=== PATIENT | female | born 1995 | race Caucasian/White ===

== ENCOUNTER 2020-01-13 11:18 | Emergency (ER) | payer MEDICAID ==
--- NOTE | 2020-01-13 12:04 | EDM.PDOC ---
ED HPI GENERAL MEDICAL PROBLEM - General Chief Complaint: Respiratory Problem Stated Complaint: EXPOSED TO FLU HAS COUGH AND KIDNEY PAIN Time Seen by Provider: 01/13/20 11:29 Source of Information: Reports: Patient, Family History Limitations: Reports: No Limitations - History of Present Illness INITIAL COMMENTS - FREE TEXT/NARRATIVE: The patient presents with a fever, cough, congestion, runny nose, and kidney pain. 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 She also has a sore throat. She has no chest pain or shortness of breath. She has a little nausea but no vomiting and she has no abdominal pain. She does not have dysuria or hematuria. Onset: Gradual Duration: Day(s): Location: Reports: Back, Other (throat) Quality: Reports: Sharp Severity: Moderate Improves with: Reports: None Worsens with: Reports: None Associated Symptoms: Reports: Cough, Fever/Chills. Denies: Chest Pain, Headaches, Nausea/Vomiting, Shortness of Breath - Related Data Allergies Allergy/AdvReac Type Severity Reaction Status Date / Time butorphanol [From Stadol] Allergy Cannot Verified 01/13/20 11:29 Remember ketorolac [From Toradol] Allergy Cannot Verified 01/13/20 11:29 Remember Penicillins Allergy Cannot Verified 01/13/20 11:29 Remember trazodone Allergy Cannot Verified 01/13/20 11:29 Remember contrast dye. Allergy Cannot Uncoded 01/13/20 11:29 Remember Home Meds: Home Meds Codeine/Promethazine [Phenergan with Codeine] 5 - 10 ml PO Q6HR PRN #300 ml 06/26 [Rx] Past Medical History Cardiovascular History: Reports: Other (See Below) Other Cardiovascular History: tachycardia Respiratory History: Reports: Asthma - Past Surgical History HEENT Surgical History: Reports: Adenoidectomy, Myringotomy w Tube(s), Tonsillectomy GI Surgical History: Reports: Cholecystectomy Social & Family History - Tobacco Use Smoking Status *Q: Current Every Day Smoker Years of Tobacco use: 12 Packs/Tins Daily: 1 - Recreational Drug Use Recreational Drug Use: No ED ROS GENERAL - Review of Systems Review Of Systems: See Below Constitutional: Reports: No Symptoms HEENT: Reports: Throat Pain Respiratory: Reports: Cough. Denies: Shortness of Breath Cardiovascular: Reports: No Symptoms Endocrine: Reports: No Symptoms GI/Abdominal: Reports: Nausea. Denies: Abdominal Pain, Vomiting : Reports: No Symptoms Musculoskeletal: Reports: Back Pain ED EXAM, GENERAL - Physical Exam Exam: See Below Exam Limited By: No Limitations General Appearance: Alert, No Apparent Distress Ears: Normal External Exam Nose: Normal Inspection Throat/Mouth: Other (pharyngeal erythema and some mild edema) Head: Atraumatic, Normocephalic Neck: Normal Inspection, Supple, Non-Tender Respiratory/Chest: No Respiratory Distress, Lungs Clear, Normal Breath Sounds Cardiovascular: Regular Rate, Rhythm, No Edema, No Murmur GI/Abdominal: Soft, Non-Tender, No Organomegaly, No Mass Back Exam: CVA Tenderness (L), CVA Tenderness (R) Extremities: Normal Inspection Neurological: Alert, Oriented, No Motor/Sensory Deficits Course - Vital Signs Last Recorded V/S: Last Vital Signs Temp 97.1 F 01/13/20 11:26 Pulse 112 H 01/13/20 11:26 Resp 16 01/13/20 11:26 BP 130/102 H 01/13/20 11:26 Pulse Ox 98 01/13/20 11:26 - Orders/Labs/Meds Orders: Active Orders 24 hr Category Date Time Status CBC WITH AUTO DIFF [HEME] Stat Lab 01/13/20 12:20 Results CULTURE STREP A CONFIRMATION [RM] Stat Lab 01/13/20 11:29 Results STREP SCRN A RAPID W CULT CONF [RM] Stat Lab 01/13/20 11:29 Results Labs: Laboratory Tests 01/13/20 01/13/20 Range/Units 12:20 12:20 WBC 3.85 L (3.98-10.04) K/mm3 RBC 4.79 (3.98-5.22) M/mm3 Hgb 13.4 (11.2-15.7) gm/dl Hct 41.5 (34.1-44.9) % MCV 86.6 (79.4-94.8) fl MCH 28.0 (25.6-32.2) pg MCHC 32.3 (32.2-35.5) g/dl RDW Std Deviation 45.4 (36.4-46.3) fL Plt Count 280 (182-369) K/mm3 MPV 10.0 (9.4-12.3) fl Neut % (Auto) 64.0 (34.0-71.1) % Lymph % (Auto) 17.9 L (19.3-51.7) % Sherman % (Auto) 16.6 H (4.7-12.5) % Eos % (Auto) 1.0 (0.7-5.8) Baso % (Auto) 0.5 (0.1-1.2) % Neut # (Auto) 2.46 (1.56-6.13) K/mm3 Lymph # (Auto) 0.69 L (1.18-3.74) K/mm3 Sherman # (Auto) 0.64 H (0.24-0.36) K/mm3 Eos # (Auto) 0.04 (0.04-0.36) K/mm3 Baso # (Auto) 0.02 (0.01-0.08) K/mm3 Sodium 139 (136-145) mEq/L Potassium 3.9 (3.5-5.1) mEq/L Chloride 106 (98-107) mEq/L Carbon Dioxide 26 (21-32) mEq/L Anion Gap 10.9 (5-15) BUN 7 (7-18) mg/dL Creatinine 0.7 (0.55-1.02) mg/dL Est Cr Clr Drug Dosing 103.40 mL/min Estimated GFR (MDRD) > 60 (>60) mL/min BUN/Creatinine Ratio 10.0 L (14-18) Glucose 85 (74-106) mg/dL Calcium 9.0 (8.5-10.1) mg/dL Total Bilirubin 0.2 (0.2-1.0) mg/dL AST 18 (15-37) U/L ALT 28 (14-59) U/L Alkaline Phosphatase 115 (46-116) U/L Total Protein 7.5 (6.4-8.2) g/dl Albumin 3.7 (3.4-5.0) g/dl Globulin 3.8 gm/dL Albumin/Globulin Ratio 1.0 (1-2) - Re-Assessments/Exams Free Text/Narrative Re-Assessment/Exam: 01/13/20 12:03 I have ordered some labs, influenza and strep. 01/13/20 12:54 The infleunza and strep are negative. Her CBC and CMP look good. She has a viral URI. I will give her something for the cough. Departure - Departure Time of Disposition: 13:00 Disposition: Home, Self-Care 01 Condition: Good Clinical Impression: Viral URI with cough - Discharge Information *PRESCRIPTION DRUG MONITORING PROGRAM REVIEWED*: Not Applicable *COPY OF PRESCRIPTION DRUG MONITORING REPORT IN PATIENT RUTHIE: Not Applicable Prescriptions: Codeine/Promethazine [Phenergan with Codeine] 5 - 10 ml PO Q6HR PRN #300 ml PRN Reason: Cough Referrals: PCP,None [Primary Care Provider] - Forms: ED Department Discharge Additional Instructions: Drink plenty of fluids. Take motrin or tylenol as needed for fever. Use the phenergan with codeine as needed for cough. Please return if you are worse. Sepsis Event Note - Evaluation Sepsis Screening Result: No Definite Risk - Focused Exam Vital Signs: Vital Signs Temp Pulse Resp BP Pulse Ox 01/13/20 11:26 97.1 F 112 H 16 130/102 H 98 Date Exam was Performed: 01/13/20 Time Exam was Performed: 12:54 - My Orders Last 24 Hours: My Active Orders 01/13/20 11:29 CULTURE STREP A CONFIRMATION [RM] Stat STREP SCRN A RAPID W CULT CONF [RM] Stat 01/13/20 12:20 CBC WITH AUTO DIFF [HEME] Stat - Assessment/Plan Last 24 Hours: My Active Orders 01/13/20 11:29 CULTURE STREP A CONFIRMATION [RM] Stat STREP SCRN A RAPID W CULT CONF [RM] Stat 01/13/20 12:20 CBC WITH AUTO DIFF [HEME] Stat
== END 2020-01-13 13:05 | disposition home or self-care (01) ==
LOC: JD.ED 11:18
DX: J06.9 Acute upper respiratory infection, unspecified (principal); J45.909 Unspecified asthma, uncomplicated; F17.210 Nicotine dependence, cigarettes, uncomplicated; Z91.041 Radiographic dye allergy status; Z88.5 Allergy status to narcotic agent; Z88.0 Allergy status to penicillin; Z88.8 Allergy status to other drugs, medicaments and biological substances
CPT/HCPCS: 36415; 80053; 85025; 87081; 87430; 87804; 99283

== ENCOUNTER 2020-01-16 11:41 | Emergency (ER) | payer SELFPAY ==
[2020-01-16] MEDS ORDERED: Codeine/Promethazine 10-6.25 MG/5 ML Syrup 5 ML UD Cup PO ONE (13:42)
[2020-01-16] MEDS ORDERED: Sodium Chloride 0.9% 1,000 ML IV ONE (13:43)
[2020-01-16] MEDS ORDERED: Sodium Chloride 0.9% 10 ML Syringe FLUSH PRN (13:43)
[2020-01-16] MEDS ORDERED: Ondansetron 4 MG/2 ML SDV IVPUSH ONE (13:43)
--- NOTE | 2020-01-16 13:44 | EDM.PDOC ---
ED HPI GENERAL MEDICAL PROBLEM - General Chief Complaint: Respiratory Problem Stated Complaint: UPPER RESPIRATORY INFECTION Time Seen by Provider: 01/16/20 13:28 Source of Information: Reports: Patient, Old Records History Limitations: Reports: No Limitations - History of Present Illness INITIAL COMMENTS - FREE TEXT/NARRATIVE: Patient is a 24-year-old female who presents to the ED for the evaluation of her ongoing illness. Patient notes she was seen in this ER a couple days ago, evaluated and told she had a viral illness and sent home with some cough medication. She states that she was unable to afford the cough medication so did not fill it. She is still coughing, and has had a little bit of nausea/ vomiting/diarrhea over the last 2 days since her last evaluation. She notes she is had a chronic dry cough for the last year but does state is been worse the last 2 weeks. Of note she does vape. She states she is only had 2 or 3 episodes of nausea and vomiting. The diarrhea has been quite loose and has been about 2 or 3 episodes as well. She states she is getting hot and cold flashes but no discernible fever. Patient states she did take 2 home test, and these were both negative. She knows she has had not much for an appetite as well. She is having some generalized chest tenderness due to the cough. Chest Pain Score (Numeric/FACES): 9 - Related Data Allergies Allergy/AdvReac Type Severity Reaction Status Date / Time butorphanol [From Stadol] Allergy Cannot Verified 01/16/20 12:17 Remember ketorolac [From Toradol] Allergy Cannot Verified 01/16/20 12:17 Remember Penicillins Allergy Cannot Verified 01/16/20 12:17 Remember trazodone Allergy Cannot Verified 01/16/20 12:17 Remember contrast dye. Allergy Cannot Uncoded 01/16/20 12:17 Remember Home Meds: Home Meds Codeine/Promethazine [Phenergan with Codeine] 5 - 10 ml PO Q6HR PRN #300 ml 06/26 [Rx] Past Medical History Cardiovascular History: Reports: Other (See Below) Other Cardiovascular History: tachycardia Respiratory History: Reports: Asthma - Past Surgical History HEENT Surgical History: Reports: Adenoidectomy, Myringotomy w Tube(s), Tonsillectomy GI Surgical History: Reports: Cholecystectomy Social & Family History - Tobacco Use Smoking Status *Q: Current Every Day Smoker Years of Tobacco use: 12 Packs/Tins Daily: 1 - Caffeine Use Caffeine Use: Reports: None - Recreational Drug Use Recreational Drug Use: No ED ROS GENERAL - Review of Systems Review Of Systems: See Below Constitutional: Reports: Decreased Appetite. Denies: Fever, Chills HEENT: Reports: Throat Pain Respiratory: Reports: Cough, Sputum. Denies: Shortness of Breath Cardiovascular: Reports: Chest Pain (chest discomfort from coughing) GI/Abdominal: Reports: Diarrhea, Nausea, Vomiting. Denies: Abdominal Pain Neurological: Denies: Dizziness ED EXAM, GENERAL - Physical Exam Exam: See Below Exam Limited By: No Limitations General Appearance: Alert, WD/WN, No Apparent Distress Eye Exam: Bilateral Eye: EOMI, Normal Inspection, PERRL Ears: Normal External Exam, Normal Canal, Hearing Grossly Normal, Normal TMs Nose: Normal Inspection Throat/Mouth: Normal Inspection, Normal Lips, Normal Teeth, Normal Gums, Normal Oropharynx, Normal Voice, No Airway Compromise Head: Atraumatic, Normocephalic Neck: Normal Inspection Respiratory/Chest: No Respiratory Distress, Lungs Clear, Normal Breath Sounds, No Accessory Muscle Use, Chest Non-Tender Cardiovascular: Normal Peripheral Pulses, Regular Rate, Rhythm, No Murmur GI/Abdominal: Normal Bowel Sounds, Soft, Non-Tender, No Distention, No Mass Extremities: Normal Inspection, Normal Capillary Refill Neurological: Alert, Oriented, Normal Cognition, No Motor/Sensory Deficits Psychiatric: Normal Affect, Normal Mood Skin Exam: Warm, Dry, Intact, Normal Color, No Rash Course - Vital Signs Last Recorded V/S: Last Vital Signs Temp 97.0 F 01/16/20 12:12 Pulse 124 H 01/16/20 12:12 Resp 20 01/16/20 12:12 BP 144/109 H 01/16/20 12:12 Pulse Ox 96 01/16/20 12:12 - Orders/Labs/Meds Orders: Active Orders 24 hr Category Date Time Status Peripheral IV Care [RC] . DIRECTED Care 01/16/20 13:43 Ordered RT Post Treatment Assessment [RC] Click to Edit Care 01/16/20 14:17 Ordered RT Pre-Treatment Assessment [RC] Click to Edit Care 01/16/20 14:17 Ordered Sodium Chloride 0.9% [Saline Flush] Med 01/16/20 13:43 Active 10 ml FLUSH ASDIRECTED PRN Peripheral IV Insertion Adult [OM.PC] Stat Oth 01/16/20 13:43 Ordered Medication Orders Sodium Chloride (Saline Flush) 10 ml FLUSH ASDIRECTED PRN PRN Reason: Keep Vein Open Meds: Medications Generic Name Dose Route Start Last Admin Trade Name Freq PRN Reason Stop Dose Admin Sodium Chloride 10 ml 01/16/20 13:43 Saline Flush FLUSH ASDIRECTED PRN Keep Vein Open Discontinued Medications Generic Name Dose Route Start Last Admin Trade Name Freq PRN Reason Stop Dose Admin Acetaminophen 650 mg 01/16/20 14:49 Tylenol PO 01/16/20 14:50 NOW ONE Albuterol 0 gm 01/16/20 14:17 01/16/20 15:08 Proventil Hfa INH 01/16/20 14:18 2 puff ONETIME ONE Administration Sodium Chloride 1,000 mls @ 999 mls/hr 01/16/20 13:43 01/16/20 14:11 Normal Saline IV 01/16/20 14:43 999 mls/hr ONETIME ONE Administration Ketorolac Tromethamine 30 mg 01/16/20 13:43 01/16/20 14:27 Toradol IVPUSH 01/16/20 13:44 Not Given ONETIME ONE Ondansetron HCl 4 mg 01/16/20 13:43 01/16/20 14:11 Zofran IVPUSH 01/16/20 13:44 4 mg ONETIME ONE Administration Promethazine HCl/Codeine 5 ml 01/16/20 13:42 01/16/20 14:11 Phenergan With Codeine PO 01/16/20 13:43 5 ml ONETIME ONE Administration - Re-Assessments/Exams Free Text/Narrative Re-Assessment/Exam: 01/16/20 13:47 Patient presents to the ED for evaluation of her worsening upper respiratory symptoms. On examination, the patient looks fine, but is complaining of nausea and vomiting and not able to keep any food down. She will be given 4 mg IV Zofran, 30 mg IV Toradol, she states she cannot remember what happened with Toradol the last time she took it. This is likely not a true allergy. Should be given some promethazine and codeine for cough syrup today. Unfortunately patient states she is very financially strapped and cannot afford much for medications, so did not fill the cough syrup that was provided to her a few days ago. She did have an extensive laboratory evaluation done that visit, and everything was negative, due to the patient's presentation today I do not believe further laboratory evaluation is warranted. 01/16/20 15:08 Patient's fluids are almost done, she did receive some Tylenol for chest pain, she refused the Toradol. I have provided her with an outpatient albuterol inhaler for the ER, as she cannot afford other medications through pharmacies. We will have her take this as directed and follow-up with her primary care provider of choice in a few days if she is not feeling much better. Departure - Departure Time of Disposition: 15:09 Disposition: Home, Self-Care 01 Condition: Fair Clinical Impression: Viral URI with cough - Discharge Information *PRESCRIPTION DRUG MONITORING PROGRAM REVIEWED*: No *COPY OF PRESCRIPTION DRUG MONITORING REPORT IN PATIENT RUTHIE: No Instructions: Viral Respiratory Infection, [id number] Referrals: PCP,Not In Area [Primary Care Provider] - Forms: ED Department Discharge Additional Instructions: You have been evaluated in the ED today for your cold like symptoms, cough, sore throat. This is likely a viral illness in etiology. Please increase your fluid intake. Get plenty of rest as well. You should feel better in a few days. You were provided with an albuterol inhaler, please take 1 to 2 puffs every 4 hours as needed for further cough/increasing shortness of breath. Recommend that you take some [id number] nasal decongestants, cough/cold remedies to combat this. Medicines like NyQuil, DayQuil, phenylephrine and other sinus decongestants are adequate. If your symptoms are not better in one week's time recommend that you follow up in a clinic or your primary care provider. Our [facility] clinic number is , the [place] clinic is [phone]. Any family practice provider would be able to provide you with the services. Please return to the ED if your symptoms change or worsen. Sepsis Event Note - Evaluation Sepsis Screening Result: No Definite Risk - Focused Exam Vital Signs: Vital Signs Temp Pulse Resp BP Pulse Ox 01/16/20 12:12 97.0 F 124 H 20 144/109 H 96 Date Exam was Performed: 01/16/20 Time Exam was Performed: 15:08 - My Orders Last 24 Hours: My Active Orders 01/16/20 13:43 Peripheral IV Care [RC] . DIRECTED Sodium Chloride 0.9% [Saline Flush] 10 ml FLUSH ASDIRECTED PRN Peripheral IV Insertion Adult [OM.PC] Stat 01/16/20 14:17 RT Post Treatment Assessment [RC] Click to Edit RT Pre-Treatment Assessment [RC] Click to Edit - Assessment/Plan Last 24 Hours: My Active Orders 01/16/20 13:43 Peripheral IV Care [RC] . DIRECTED Sodium Chloride 0.9% [Saline Flush] 10 ml FLUSH ASDIRECTED PRN Peripheral IV Insertion Adult [OM.PC] Stat 01/16/20 14:17 RT Post Treatment Assessment [RC] Click to Edit RT Pre-Treatment Assessment [RC] Click to Edit
[2020-01-16] MEDS: Ketorolac 30 MG/ML SDV IVPUSH ONE ×2 (14:11→14:27)
[2020-01-16] MEDS ORDERED: Albuterol 6.7 GM Inhaler INH ONE (14:17)
[2020-01-16] MEDS ORDERED: Acetaminophen 325 MG Tab PO ONE (14:49)
== END 2020-01-16 15:30 | disposition home or self-care (01) ==
LOC: JD.ED 11:41
DX: J06.9 Acute upper respiratory infection, unspecified (principal); J45.909 Unspecified asthma, uncomplicated; F17.210 Nicotine dependence, cigarettes, uncomplicated; Z88.8 Allergy status to other drugs, medicaments and biological substances; Z88.0 Allergy status to penicillin; Z91.041 Radiographic dye allergy status
CPT/HCPCS: 94640; 96361; 96374; 99283; A9270; J2405; J7030; J1885

== ENCOUNTER 2020-01-19 17:06 | Emergency (ER) | payer MEDICAID ==
[2020-01-19] MEDS ORDERED: HYDROmorphone 0.5 MG/0.5 ML Syringe IVPUSH ONE (18:19)
[2020-01-19] MEDS ORDERED: Ondansetron 4 MG/2 ML SDV IVPUSH ONE (18:19)
[2020-01-19] MEDS ORDERED: Sodium Chloride 0.9% 1,000 ML IV SCH (18:30)
--- NOTE | 2020-01-19 18:36 | EDM.PDOC ---
ED HPI GENERAL MEDICAL PROBLEM - General Chief Complaint: Fever Stated Complaint: HEADACHE Time Seen by Provider: 01/19/20 17:54 Source of Information: Reports: Patient History Limitations: Reports: No Limitations - History of Present Illness INITIAL COMMENTS - FREE TEXT/NARRATIVE: Patient is a 24-year-old female who presents with complaints of nausea that started this morning as well as a headache that started approximately 3 hours prior to arrival. Patient has been sick with a cough for the last 3 weeks, however she states that the cough has mostly resolved. She has had no vomiting or diarrhea. She feels like she was warm this morning, however did not check her temperature at home. She has been taking Tylenol at home for the headache. She denies any photosensitivity, however does have some phonosensitivity. She has a history of migraines which she state were mostly during her . She does have a occasional headache still, however generally are not this bad. She denies any sinus congestion at this time. Denies any pain in her ears. Headache Pain Score (Numeric/FACES): 10 - Related Data Allergies Allergy/AdvReac Type Severity Reaction Status Date / Time butorphanol [From Stadol] Allergy Cannot Verified 01/16/20 12:17 Remember ketorolac [From Toradol] Allergy Cannot Verified 01/16/20 12:17 Remember Penicillins Allergy Cannot Verified 01/16/20 12:17 Remember trazodone Allergy Cannot Verified 01/16/20 12:17 Remember contrast dye. Allergy Cannot Uncoded 01/16/20 12:17 Remember Home Meds: Home Meds Pantoprazole Sodium [Protonix] 20 mg PO BID 01/19/20 [History] Past Medical History Cardiovascular History: Reports: Other (See Below) Other Cardiovascular History: tachycardia Respiratory History: Reports: Asthma Genitourinary History: Reports: Other (See Below) Other Genitourinary History: stage 2 kidney disease - Past Surgical History HEENT Surgical History: Reports: Adenoidectomy, Myringotomy w Tube(s), Tonsillectomy GI Surgical History: Reports: Cholecystectomy Social & Family History - Family History Family Medical History: Noncontributory - Tobacco Use Smoking Status *Q: Current Every Day Smoker Years of Tobacco use: 12 Packs/Tins Daily: 0.5 - Caffeine Use Caffeine Use: Reports: None ED ROS GENERAL - Review of Systems Review Of Systems: Comprehensive ROS is negative, except as noted in HPI. - Physical Exam Exam: See Below Exam Limited By: No Limitations General Appearance: Alert, WD/WN, No Apparent Distress Eye Exam: Bilateral Eye: Normal Inspection Ears: Normal External Exam, Normal Canal, Hearing Grossly Normal, Normal TMs Throat/Mouth: Normal Inspection, Normal Lips, Normal Teeth, Normal Gums, Normal Oropharynx, Normal Voice, No Airway Compromise Respiratory/Chest: No Respiratory Distress, Lungs Clear, Normal Breath Sounds, No Accessory Muscle Use, Chest Non-Tender Cardiovascular: Normal Peripheral Pulses, Regular Rate, Rhythm, No Edema, No Gallop, No JVD, No Murmur, No Rub Neuro Exam (Abbreviated): Alert, Oriented, CN II-XII Intact, Normal Cognition, Normal Gait, Normal Reflexes, No Motor/Sensory Deficits Psychiatric: Normal Affect, Normal Mood Skin Exam: Warm, Dry, Intact, Normal Color, No Rash Course - Vital Signs Last Recorded V/S: Last Vital Signs Temp 97.8 F 01/19/20 17:19 Pulse 107 H 01/19/20 17:19 Resp 16 01/19/20 17:19 BP 126/98 H 01/19/20 17:19 Pulse Ox 100 01/19/20 17:19 - Orders/Labs/Meds Orders: Active Orders 24 hr Category Date Time Status Isolation [COMM] Routine Oth 01/19/20 17:32 Ordered Meds: Medications Discontinued Medications Generic Name Dose Route Start Last Admin Trade Name Freq PRN Reason Stop Dose Admin Hydromorphone HCl 0.5 mg 01/19/20 18:19 01/19/20 18:53 Dilaudid IVPUSH 01/19/20 18:20 0.5 mg ONETIME ONE Administration Sodium Chloride 1,000 mls @ 999 mls/hr 01/19/20 18:30 01/19/20 18:53 Normal Saline IV 999 mls/hr ASDIRECTED KIERRA Administration Ondansetron HCl 4 mg 01/19/20 18:19 01/19/20 18:53 Zofran IVPUSH 01/19/20 18:20 4 mg ONETIME ONE Administration - Re-Assessments/Exams Free Text/Narrative Re-Assessment/Exam: 01/19/20 18:35 Patient's overall exam was negative. She is allergic to Toradol, therefore we will treat with a liter of IV fluids, Zofran, and Dilaudid IV. She does have a history of migraines and this headache was of gradual onset. Discussed the option of a CT of the head, and patient declined at this time. 01/19/20 19:38 Patient verbalized relief from her headache and nausea she feels like she is ready to go home. We will let her finish her liter of IV fluids and then proceed with discharge. Discharge instructions as documented. Departure - Departure Time of Disposition: 19:38 Disposition: Home, Self-Care 01 Condition: Fair Clinical Impression: Headache Qualifiers: Headache type: unspecified Headache chronicity pattern: acute headache Intractability: not intractable Qualified Code(s): R51 - Headache - Discharge Information Instructions: Migraine Headache, [id number] Referrals: PCP,None [Primary Care Provider] - Forms: ED Department Discharge Additional Instructions: You were seen in the emergency department today for nausea and a headache. While in the ER you received a liter of IV fluids, Dilaudid, and Zofran. He did verbalize that these relieved her symptoms. Recommend that you go home and rest in a quiet dark room for the rest of the evening. You may use over-the- counter Tylenol or ibuprofen as needed for any additional headache. If you should experience any new or worsening symptoms of concern, please do not hesitate to return to the emergency department. Sepsis Event Note - Evaluation Sepsis Screening Result: No Definite Risk - Focused Exam Vital Signs: Vital Signs Temp Pulse Resp BP Pulse Ox 01/19/20 17:19 97.8 F 107 H 16 126/98 H 100 Date Exam was Performed: 01/20/20 Time Exam was Performed: 00:07 - My Orders Last 24 Hours: My Active Orders 01/19/20 17:32 Isolation [COMM] Routine - Assessment/Plan Last 24 Hours: My Active Orders 01/19/20 17:32 Isolation [COMM] Routine
== END 2020-01-19 20:20 | disposition home or self-care (01) ==
LOC: JD.ED 17:06
DX: R51 Headache (principal); R11.0 Nausea; J45.909 Unspecified asthma, uncomplicated; N18.2 Chronic kidney disease, stage 2 (mild); F17.210 Nicotine dependence, cigarettes, uncomplicated; Z88.0 Allergy status to penicillin; Z88.8 Allergy status to other drugs, medicaments and biological substances; Z91.041 Radiographic dye allergy status; Z90.49 Acquired absence of other specified parts of digestive tract
CPT/HCPCS: 87804; 96361; 96374; 96375; 99284; J1170; J2405; J7030; 99283

== ENCOUNTER 2020-03-02 16:24 | Emergency (ER) | payer MEDICAID ==
--- NOTE | 2020-03-02 17:11 | EDM.PDOC ---
ED HPI GENERAL MEDICAL PROBLEM - General Chief Complaint: Respiratory Problem Stated Complaint: COUGH/CHILLS Time Seen by Provider: 03/02/20 16:46 Source of Information: Reports: Patient, Old Records, RN Notes Reviewed History Limitations: Reports: No Limitations - History of Present Illness INITIAL COMMENTS - FREE TEXT/NARRATIVE: Patient is a 24-year-old female who presents to the ED for ongoing cough and chills. Patient notes she has had a cough for roughly 3 weeks, she moved here from [place] around that time. She, tested for influenza and strep was seen 3 times in January for upper respiratory illness, and was sent home with some cough medication. Patient states that she was tested for COVID-19, with negative results. I cannot see that in our computer anywhere, but the patient states this was done in this ER. Patient notes she does work at [employer], and went to work the other day, and was sent home due to a mild fever and cough. She states that her work will not let her return to work until she is tested and is negative, or if symptoms stop for at least 7 days. Patient is resting calmly on the ER cot talking in full sentences, her O2 sats are 100% on room air, and all other vital signs are stable, she is mildly tacky, but the patient states that she has a prior issue with this. Patient is not complaining of any nausea/ vomiting/diarrhea. States she is having some shortness of breath that is there pretty well all the time, a cough that sometimes productive, and when she coughs , makes the shortness of breath worse. She does have a history of asthma, but does not think that this is necessarily worse since this illness. - Related Data Allergies Allergy/AdvReac Type Severity Reaction Status Date / Time butorphanol [From Stadol] Allergy Severe Cannot Verified 03/02/20 16:44 Remember ketorolac [From Toradol] Allergy Severe Cannot Verified 03/02/20 16:44 Remember Penicillins Allergy Severe Cannot Verified 03/02/20 16:44 Remember trazodone Allergy Severe Cannot Verified 03/02/20 16:44 Remember contrast dye. Allergy Severe Cannot Uncoded 03/02/20 16:44 Remember Home Meds: Home Meds Divalproex Sodium [Depakote ER] 250 mg PO TID 03/02/20 [History] Famotidine 40 mg PO DAILY 03/02/20 [History] Past Medical History Cardiovascular History: Reports: Other (See Below) Other Cardiovascular History: tachycardia Respiratory History: Reports: Asthma Genitourinary History: Reports: Other (See Below) Other Genitourinary History: stage 2 kidney disease Psychiatric History: Reports: Anxiety, Bipolar - Past Surgical History HEENT Surgical History: Reports: Adenoidectomy, Myringotomy w Tube(s), Tonsillectomy GI Surgical History: Reports: Cholecystectomy Social & Family History - Family History Family Medical History: Noncontributory - Tobacco Use Smoking Status *Q: Current Every Day Smoker Years of Tobacco use: 11 Packs/Tins Daily: 1.5 - Caffeine Use Caffeine Use: Reports: Coffee, Energy Drinks, Tea - Recreational Drug Use Recreational Drug Use: Yes Drug Use in Last 12 Months: No Recreational Drug Type: Reports: Marijuana/Hashish ED ROS GENERAL - Review of Systems Review Of Systems: See Below Constitutional: Reports: Chills. Denies: Fever Respiratory: Reports: Shortness of Breath, Cough Cardiovascular: Denies: Chest Pain GI/Abdominal: Denies: Abdominal Pain, Constipation, Diarrhea, Nausea, Vomiting ED EXAM, GENERAL - Physical Exam Exam: See Below Exam Limited By: No Limitations General Appearance: Alert, WD/WN, No Apparent Distress Throat/Mouth: Normal Inspection, Normal Lips, Normal Teeth, Normal Gums, Normal Oropharynx, Normal Voice, No Airway Compromise Head: Atraumatic, Normocephalic Neck: Normal Inspection Respiratory/Chest: No Respiratory Distress, Lungs Clear, Normal Breath Sounds, No Accessory Muscle Use, Chest Non-Tender Cardiovascular: Normal Peripheral Pulses, Regular Rate, Rhythm, No Murmur Extremities: Normal Inspection, Normal Capillary Refill Neurological: Alert, Oriented, Normal Cognition, No Motor/Sensory Deficits Psychiatric: Normal Affect, Normal Mood Skin Exam: Warm, Dry, Intact, Normal Color, No Rash Course - Vital Signs Last Recorded V/S: Last Vital Signs Temp 98.9 F 03/02/20 16:36 Pulse 117 H 03/02/20 16:36 Resp 18 03/02/20 16:36 BP 127/105 H 03/02/20 16:36 Pulse Ox 100 03/02/20 16:36 - Orders/Labs/Meds Orders: Active Orders 24 hr Category Date Time Status CORONAVIRUS COVID-19 PCR [facility] Stat Lab 03/02/20 17:04 Ordered Labs: Laboratory Tests 03/02/20 03/02/20 03/02/20 Range/Units 17:40 17:40 17:40 WBC 4.65 (3.98-10.04) K/mm3 RBC 5.21 (3.98-5.22) M/mm3 Hgb 14.3 (11.2-15.7) gm/dl Hct 43.2 (34.1-44.9) % MCV 82.9 D (79.4-94.8) fl MCH 27.4 (25.6-32.2) pg MCHC 33.1 (32.2-35.5) g/dl RDW Std Deviation 42.4 (36.4-46.3) fL Plt Count 343 (182-369) K/mm3 MPV 9.9 (9.4-12.3) fl Neutrophils % (Manual) 68 H (40-60) % Band Neutrophils % 0 (0-10) % Lymphocytes % (Manual) 26 (20-40) % Atypical Lymphs % 0 % Monocytes % (Manual) 6 (2-10) % Eosinophils % (Manual) 0 L (0.7-5.8) % Basophils % (Manual) 0 L (0.1-1.2) Platelet Estimate Adequate Plt Morphology Comment Normal RBC Morph Comment Normal PT 11.2 (9.7-12.0) SECONDS INR 1.03 APTT 28 (22-31) SECONDS Sodium (136-145) mEq/L Potassium (3.5-5.1) mEq/L Chloride (98-107) mEq/L Carbon Dioxide (21-32) mEq/L Anion Gap (5-15) BUN (7-18) mg/dL Creatinine (0.55-1.02) mg/dL Est Cr Clr Drug Dosing mL/min Estimated GFR (MDRD) (>60) mL/min BUN/Creatinine Ratio (14-18) Glucose (74-106) mg/dL Calcium (8.5-10.1) mg/dL Magnesium (1.8-2.4) mg/dl Ferritin (8-252) ng/ml Total Bilirubin (0.2-1.0) mg/dL AST (15-37) U/L ALT (14-59) U/L Alkaline Phosphatase (46-116) U/L Lactate Dehydrogenase (81-234) U/L C-Reactive Protein 0.7 (<1.0) mg/dL Total Protein (6.4-8.2) g/dl Albumin (3.4-5.0) g/dl Globulin gm/dL Albumin/Globulin Ratio (1-2) 03/02/20 03/02/20 Range/Units 17:40 17:40 WBC (3.98-10.04) K/mm3 RBC (3.98-5.22) M/mm3 Hgb (11.2-15.7) gm/dl Hct (34.1-44.9) % MCV (79.4-94.8) fl MCH (25.6-32.2) pg MCHC (32.2-35.5) g/dl RDW Std Deviation (36.4-46.3) fL Plt Count (182-369) K/mm3 MPV (9.4-12.3) fl Neutrophils % (Manual) (40-60) % Band Neutrophils % (0-10) % Lymphocytes % (Manual) (20-40) % Atypical Lymphs % % Monocytes % (Manual) (2-10) % Eosinophils % (Manual) (0.7-5.8) % Basophils % (Manual) (0.1-1.2) Platelet Estimate Plt Morphology Comment RBC Morph Comment PT (9.7-12.0) SECONDS INR APTT (22-31) SECONDS Sodium 141 (136-145) mEq/L Potassium 3.8 (3.5-5.1) mEq/L Chloride 105 (98-107) mEq/L Carbon Dioxide 24 (21-32) mEq/L Anion Gap 15.8 H (5-15) BUN 8 (7-18) mg/dL Creatinine 0.8 (0.55-1.02) mg/dL Est Cr Clr Drug Dosing 88.50 mL/min Estimated GFR (MDRD) > 60 (>60) mL/min BUN/Creatinine Ratio 10.0 L (14-18) Glucose 92 (74-106) mg/dL Calcium 9.2 (8.5-10.1) mg/dL Magnesium 2.0 (1.8-2.4) mg/dl Ferritin 26 (8-252) ng/ml Total Bilirubin 0.5 (0.2-1.0) mg/dL AST 16 (15-37) U/L ALT 23 (14-59) U/L Alkaline Phosphatase 93 (46-116) U/L Lactate Dehydrogenase 149 (81-234) U/L C-Reactive Protein (<1.0) mg/dL Total Protein 7.8 (6.4-8.2) g/dl Albumin 4.1 (3.4-5.0) g/dl Globulin 3.7 gm/dL Albumin/Globulin Ratio 1.1 (1-2) - Re-Assessments/Exams Free Text/Narrative Re-Assessment/Exam: 03/02/20 17:10 The patient presents to the ED for evaluation of her ongoing cough and chills. Again I looked at her old records, I do not see anywhere where she had been tested for COVID-19 out of this ER, and her last 3 visits in January. She was tested for influenza twice and strep once and all were negative. Nonetheless I have ordered some labs, COVID-19 screen, and a chest x-ray for today's purposes. 03/02/20 17:49 Chest x-ray has been taken, and does appear to be within normal limits, no acute abnormalities appreciated by radiologist. 03/02/20 18:35 Labs are back, and demonstrate no worrisome abnormalities. Patient be discharged home with general recommendations. Departure - Departure Time of Disposition: 18:33 Disposition: Home, Self-Care 01 Condition: Good Clinical Impression: Cough present for greater than 3 weeks, Chills (without fever) - Discharge Information *PRESCRIPTION DRUG MONITORING PROGRAM REVIEWED*: No *COPY OF PRESCRIPTION DRUG MONITORING REPORT IN PATIENT RUTHIE: No Instructions: Cough, Adult, [id number] Referrals: PCP,None [Primary Care Provider] - Forms: ED Department Discharge Additional Instructions: You were seen in the ER today for ongoing respiratory symptoms. Your chest x-ray showed no signs of pneumonia at this time. Your oxygen levels were great at 99-100% on room air. At this time we did test you for coronavirus. You have been given a handout from the [place] [facility] regarding this. We ask that you self-quarantine for at least 7 days from the beginning of symptoms. You have been given a work note to reflect this. Swabs are sent from this facility on a daily basis, at 2:30 PM , you should expect up to 3-5 business days for positive or negative results. However you may receive results earlier than this. We are doing our best to call as soon as we get results from the [place] dept[facility]. It is recommended at this time that you go home and self quarantine and try to limit exposure to other as much as possible. Please try to increase your oral fluid intake, and eat multiple small meals throughout the day, to keep yourself healthy. You may take 500 mg Tylenol every hours 6 hours for pain/fever relief. Do not exceed 4000 mg Tylenol in a 24-hour time span. However, running a fever is your body's natural response to illness, and it allows the body to develop antibodies to disease, we are recommending trying to limit the use of Tylenol as much as possible to allow your body's natural immune response. Sepsis Event Note - Evaluation Sepsis Screening Result: No Definite Risk - Focused Exam Vital Signs: Vital Signs Temp Pulse Resp BP Pulse Ox 03/02/20 16:36 98.9 F 117 H 18 127/105 H 100 Date Exam was Performed: 03/02/20 Time Exam was Performed: 18:35 - My Orders Last 24 Hours: My Active Orders 03/02/20 17:04 CORONAVIRUS COVID-19 PCR [facility] Stat - Assessment/Plan Last 24 Hours: My Active Orders 03/02/20 17:04 CORONAVIRUS COVID-19 PCR [facility] Stat
--- NOTE | 2020-03-02 17:46 | CR ---
Chest: Portable view of the chest was obtained. Comparison: No prior chest imaging. Heart size and mediastinum are normal. Lungs are clear with no acute parenchymal change. Minimal scoliosis is noted. Impression: 1. Nothing acute is appreciated on portable chest x-ray. Diagnostic code #1 This report was dictated in MDT
== END 2020-03-02 18:55 | disposition home or self-care (01) ==
LOC: JD.ED 16:24
DX: R05 Cough (principal); R68.83 Chills (without fever); Z20.828 Contact with and (suspected) exposure to other viral communicable diseases; J45.909 Unspecified asthma, uncomplicated; F31.9 Bipolar disorder, unspecified; F41.9 Anxiety disorder, unspecified; N18.2 Chronic kidney disease, stage 2 (mild); F17.210 Nicotine dependence, cigarettes, uncomplicated; Z88.8 Allergy status to other drugs, medicaments and biological substances; Z91.041 Radiographic dye allergy status; Z88.0 Allergy status to penicillin; Z88.6 Allergy status to analgesic agent; Z79.899 Other long term (current) drug therapy
CPT/HCPCS: 36415; 71045; 71045-26; 80053; 82728; 83615; 83735; 85007; 85027; 85610; 85730; 86140; 99282; 99283-25; U0002

== ENCOUNTER 2020-03-04 18:00 | Emergency (ER) | payer MEDICAID ==
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
== END 2020-03-04 19:07 | disposition home or self-care (01) ==
LOC: JD.ED 18:00
DX: Z71.1 Person with feared health complaint in whom no diagnosis is made (principal); R00.0 Tachycardia, unspecified; F17.210 Nicotine dependence, cigarettes, uncomplicated; Z88.8 Allergy status to other drugs, medicaments and biological substances; Z88.6 Allergy status to analgesic agent; Z88.0 Allergy status to penicillin; Z91.041 Radiographic dye allergy status; Z79.899 Other long term (current) drug therapy; Z90.49 Acquired absence of other specified parts of digestive tract
CPT/HCPCS: 81003; 81025; 99284

== ENCOUNTER 2020-03-28 16:54 | Emergency (ER) | payer MEDICAID, OTHER ==
[2020-03-28] MEDS ORDERED: Acetaminophen/HYDROcodone 325-5 MG Tab PO ONE (17:31)
[2020-03-28] MEDS ORDERED: Orphenadrine 100 MG Tab.ER PO ONE (17:31)
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
--- NOTE | 2020-03-30 10:27 | CR ---
Cervical spine: AP, lateral and odontoid views of the cervical spine were obtained. Comparison: No previous study. Vertebral body heights and disc spaces are maintained. Prevertebral soft tissues are normal. No subluxation or fracture is appreciated. Impression: 1. No abnormality is identified on 3 view cervical spine exam. Diagnostic code #1 This report was dictated in MDT
== END 2020-03-28 19:00 | disposition home or self-care (01) ==
LOC: JD.ED 16:54
DX: S16.1XXA Strain of muscle, fascia and tendon at neck level, initial encounter (principal); J45.909 Unspecified asthma, uncomplicated; K21.9 Gastro-esophageal reflux disease without esophagitis; F17.210 Nicotine dependence, cigarettes, uncomplicated; Z88.8 Allergy status to other drugs, medicaments and biological substances; Z88.6 Allergy status to analgesic agent; Z88.0 Allergy status to penicillin; Z91.041 Radiographic dye allergy status; W01.0XXA Fall on same level from slipping, tripping and stumbling without subsequent striking against object, initial encounter
CPT/HCPCS: 72040; 99283; A9270

== ENCOUNTER 2020-04-23 04:36 | Emergency (ER) | payer MEDICAID ==
[2020-04-23] MEDS ORDERED: Nitrofurantoin Monohydrate/Macrocrystalline 100 MG Cap ONE (06:38)
[2020-04-23] MEDS ORDERED: Phenazopyridine 95 MG Tab ONE (06:38)
[2020-04-23] MEDS ORDERED: Potassium Chloride 20 MEQ Tab.ER ONE (06:38)
--- NOTE | 2020-04-23 14:08 | ER ---
CHIEF COMPLAINT: Burning and frequency with urination. HISTORY OF PRESENT ILLNESS: The patient is a 24-year-old female who presents to the emergency room with worsening burning and frequency with urination. The patient has had recurrent bladder infections in the past. She also has a history of stage 2 renal disease. The cause of this is unclear and the patient is not certain as to why. The patient denies any fever or chills. She has had no nausea, vomiting, or diarrhea. However, she has had some worsening back discomfort with this. Pain is mostly in her lower abdomen, right side worse than left. REVIEW OF SYSTEMS: GENERAL: Negative for fever, chills, or dizziness. HEENT: Unremarkable. CARDIOVASCULAR: The patient denies any chest pain or chest pressure or developing edema. PULMONARY: No breathing difficulties or shortness of breath. GASTROINTESTINAL: Significant for lower abdominal discomfort. No nausea, vomiting, constipation, or diarrhea. GENITOURINARY: Urinary frequency. No hematuria. She has a quite bit of discomfort especially at the end of voiding. MUSCULOSKELETAL: The patient has no aches and pains that are out of the ordinary for her. PHYSICAL EXAMINATION: GENERAL: The patient appears her stated age. She is in no acute distress. She is afebrile. HEAD: Normocephalic. NECK: Supple. No palpable neck masses. Thyroid is not palpable. No lymphadenopathy. HEART: Regular rate and rhythm. No murmur. LUNGS: Clear. Respirations nonlabored. No wheezes, crackles, or rhonchi. ABDOMEN: Active bowel sounds. Soft. No rebound or guarding. She has significant discomfort in the suprapubic area extending into the right lower quadrant and the left lower quadrant. BACK: She has some low back discomfort but no classic CVA discomfort. EXTREMITIES: Negative for varicosities or edema. NEUROLOGIC: She is awake, alert, normal thinking process. COURSE IN THE EMERGENCY ROOM: The patient had some labs obtained. Her BUN is 9 with creatinine of 0.88. Sodium 142, potassium is little low at 3.2, chloride 107, CO2 of 26.3, glucose 84. Urinalysis somewhat suggestive of UTI with 1+ leukocyte esterase. Nitrites are negative. Microscopic shows 0 to 5 rbc's, 5 to 10 wbc's, few epithelials, few bacteria. Urine is set up for culture. HCG is negative. CBC shows a white count of 7830, hemoglobin and hematocrit of 13.9 and 41.6% respectively with platelet count of 329,000. The patient is given 40 mEq of potassium. She was started on Macrobid 100 mg b.i.d. one in the emergency room and a prescription for #14, Pyridium 100 mg one in the emergency room and prescription for #6, one to be taken every 8 hours. FINAL DIAGNOSIS: Urinary tract infection. PLAN: The patient as stated above will be started on Macrobid and Pyridium and advised to push a lots of fluids. The patient should follow up in the hospital clinic in 10 to 12 days for recheck. She is advised to return to the emergency room with any questions or problems. CARLI /[id number]
== END 2020-04-23 06:50 | disposition home or self-care (01) ==
LOC: JD.ED 04:36
DX: N39.0 Urinary tract infection, site not specified (principal)
CPT/HCPCS: 36415; 80048; 81001; 81025; 85025; 87086; 87088; 87186; 99283; A9270

== ENCOUNTER 2020-04-28 06:27 | Emergency (ER) | payer MEDICAID ==
[2020-04-28] MEDS ORDERED: HYDROmorphone 0.5 MG/0.5 ML Syringe IVPUSH ONE (07:05)
--- NOTE | 2020-04-28 07:05 | EDM.PDOC ---
ED HPI GENERAL MEDICAL PROBLEM - General Chief Complaint: Abdominal Pain Stated Complaint: ABDOMINAL AND BACK PAIN/VOMITING Time Seen by Provider: 04/28/20 06:59 Source of Information: Reports: Patient History Limitations: Reports: No Limitations - History of Present Illness INITIAL COMMENTS - FREE TEXT/NARRATIVE: 24-year-old female presents to the ED with acute onset of left upper quadrant abdominal pain /left flank pain at about 0500 hrs. this morning. Patient has been treated for urinary tract infection with Macrobid starting April 26. She states the Azo and Macrobid seems to have taken away her dysuria. She has some intermittent fever and chills. She is afebrile at the time of exam. Pain is bad enough that it caused her to vomit this morning. Emesis was bilious. No blood. No history of renal colic. Previous abdominal surgeries that of a cholecystectomy. She states her bowel function clear but she is passing hard stools. Onset: Today Onset Date: 04/28/20 Onset Time: 05:00 Duration: Hour(s):, Colic, Constant, Waxing/Waning Location: Reports: Abdomen (Left upper quadrant abdominal pain), Back (Flank pain) Quality: Reports: Ache, Sharp (Colicky component to the pain at times.), Stabbing Severity: Moderate Improves with: Reports: None (8 out of 10) Worsens with: Reports: None Context: Denies: Activity, Exercise, Lifting, Sick Contact, Trauma, Other Associated Symptoms: Reports: Fever/Chills, Loss of Appetite, Nausea/Vomiting (Vomited once this morning.). 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: Reports: Other (see below) (None.) Epigastric Pain Score (Numeric/FACES): 9 - Related Data Allergies Allergy/AdvReac Type Severity Reaction Status Date / Time acetaminophen Allergy Mild Cannot Verified 04/28/20 06:36 [From Tylenol-Codeine #3] Remember butorphanol [From Stadol] Allergy Mild Cannot Verified 04/28/20 06:36 Remember codeine Allergy Mild Cannot Verified 04/28/20 06:36 [From Tylenol-Codeine #3] Remember ketorolac [From Toradol] Allergy Mild Cannot Verified 04/28/20 06:36 Remember Penicillins Allergy Mild Cannot Verified 06/22/20 06:36 Remember shellfish derived Allergy Mild Cannot Verified 04/28/20 06:36 Remember sulfamethoxazole Allergy Mild Other Verified 04/28/20 06:36 [From Bactrim] trazodone Allergy Mild Cannot Verified 04/28/20 06:36 Remember trimethoprim [From Bactrim] Allergy Mild Other Verified 04/28/20 06:36 contrast dye. Allergy Mild Cannot Uncoded 04/28/20 06:36 Remember Home Meds: Home Meds Divalproex Sodium [Depakote ER] 250 mg PO TID 03/02/20 [History] Famotidine 40 mg PO DAILY 03/02/20 [History] Acetaminophen/HYDROcodone [[place] 325-5 MG] 1 tab PO Q6H PRN #12 tablet 03/28/20 [Rx] Orphenadrine [Norflex] 100 mg PO BID PRN #20 tab 03/28/20 [Rx] Past Medical History HEENT History: Reports: Impaired Vision Other HEENT History: Wears glasses Cardiovascular History: Reports: Other (See Below) Other Cardiovascular History: tachycardia Respiratory History: Reports: Asthma Gastrointestinal History: Reports: GERD Genitourinary History: Reports: Other (See Below) Other Genitourinary History: stage 2 kidney disease [employer] History: Reports: , 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: HPV - Past Surgical History HEENT Surgical History: Reports: Adenoidectomy, Myringotomy w Tube(s), Tonsillectomy GI Surgical History: Reports: Cholecystectomy Social & Family History - Family History Family Medical History: Noncontributory - Tobacco Use Smoking Status *Q: Current Every Day Smoker Years of Tobacco use: 12 Packs/Tins Daily: 1 - Caffeine Use Caffeine Use: Reports: Coffee, Energy Drinks, Soda, Tea - Alcohol Use Days Per Week of Alcohol Use: 7 Number of Drinks Per Day: 5 Total Drinks Per Week: 35 - Recreational Drug Use Recreational Drug Use: No - Living Situation & Occupation Living situation: Reports: Occupation: Employed ED ROS GENERAL - Review of Systems Review Of Systems: See Below Constitutional: Reports: Chills, Malaise, Weakness, Fatigue, Decreased Appetite. Denies: Weight Loss HEENT: Reports: No Symptoms Respiratory: Reports: No Symptoms Cardiovascular: Reports: No Symptoms Endocrine: Reports: No Symptoms GI/Abdominal: Reports: Abdominal Pain, Constipation, Decreased Appetite, Nausea, Vomiting. Denies: Distension, Flatus, Hematemesis, Hematochezia, Melena : Reports: Dysuria (Improved since starting Macrobid 2 days ago), Frequency. Denies: Urgency Musculoskeletal: Reports: Back Pain (Flank pain) Skin: Reports: No Symptoms Neurological: Reports: No Symptoms Psychiatric: Reports: No Symptoms Hematologic/Lymphatic: Reports: No Symptoms Immunologic: Reports: No Symptoms ED EXAM, GI/ABD - Physical Exam Exam: See Below Exam Limited By: No Limitations General Appearance: Alert, WD/WN, Mild Distress, Other (Temperature is 36.9 pulse is 93 and sinus respiratory to 17 BP 127/91 pulse ox 100%) Eyes: Bilateral: Normal Appearance (No scleral icterus or blepharal pallor.) Throat/Mouth: Other (Tongue is mildly dry and coated.) Head: Atraumatic, Normocephalic Neck: No: Normal Inspection, Supple, Non-Tender, Full Range of Motion, Lymphadenopathy (L) Respiratory/Chest: No Respiratory Distress, Lungs Clear, Normal Breath Sounds, No Accessory Muscle Use, Chest Non-Tender Cardiovascular: Normal Peripheral Pulses, Regular Rate, Rhythm, No Edema, No Murmur, No Rub GI/Abdominal Exam: Soft, No Organomegaly, No Abnormal Bruit, No Mass, Tender (Tender throughout the left upper abdomen), Abnormal Bowel Sounds (Sounds are decreased from the normal.). No: Guarding (.), Rigid, Rebound Back Exam: Normal Inspection, Full Range of Motion, CVA Tenderness (L), CVA Tenderness (R) (Moderate bilaterally) Extremities: Normal Inspection, Normal Range of Motion, Non-Tender, No Pedal Edema Neurological: Alert, Oriented, CN II-XII Intact, Normal Cognition Psychiatric: Normal Affect, Normal Mood Skin Exam: Warm, Dry, Intact, Normal Color, No Rash Course - Vital Signs Last Recorded V/S: Last Vital Signs Temp 36.9 C 04/28/20 06:36 Pulse 93 04/28/20 06:36 Resp 17 04/28/20 06:36 BP 127/91 H 04/28/20 06:36 Pulse Ox 100 04/28/20 06:36 - Orders/Labs/Meds Orders: Active Orders 24 hr Category Date Time Status Dextrose 5%-0.9% NaCl [Dextrose 5%-Normal Saline] 1,000 Med 04/28/20 07:15 Ac tive ml IV ASDIRECTED Dicyclomine [Bentyl] Med 04/28/20 09:02 Once 20 mg PO ONETIME ONE Medication Orders Dextrose/Sodium Chloride (Dextrose 5%-Normal Saline) 1,000 mls @ 150 mls/hr IV ASDIRECTED KIERRA Last Admin: 04/28/20 07:25 Dose: 150 mls/hr Documented by: DAVID Labs: Laboratory Tests 04/28/20 04/28/20 04/28/20 Range/Units 07: 07:20 08:18 WBC 6.65 (3.98-10.04) K/mm3 RBC 4.73 (3.98-5.22) M/mm3 Hgb 13.4 (11.2-15.7) gm/dl Hct 41.0 (34.1-44.9) % MCV 86.7 (79.4-94.8) fl MCH 28.3 (25.6-32.2) pg MCHC 32.7 (32.2-35.5) g/dl RDW Std Deviation 45.5 (36.4-46.3) fL Plt Count 300 (182-369) K/mm3 MPV 10.0 (9.4-12.3) fl Neut % (Auto) 61.1 (34.0-71.1) % Lymph % (Auto) 28.0 (19.3-51.7) % [place] % (Auto) 8.6 (4.7-12.5) % Eos % (Auto) 1.5 (0.7-5.8) Baso % (Auto) 0.6 (0.1-1.2) % Neut # (Auto) 4.07 (1.56-6.13) K/mm3 Lymph # (Auto) 1.86 (1.18-3.74) K/mm3 [place] # (Auto) 0.57 H (0.24-0.36) K/mm3 Eos # (Auto) 0.10 (0.04-0.36) K/mm3 Baso # (Auto) 0.04 (0.01-0.08) K/mm3 Sodium 140 (136-145) mEq/L Potassium 3.9 (3.5-5.1) mEq/L Chloride 106 (98-107) mEq/L Carbon Dioxide 27 (21-32) mEq/L Anion Gap 10.9 (5-15) BUN 10 (7-18) mg/dL Creatinine 0.7 (0.55-1.02) mg/dL Est Cr Clr Drug Dosing 103.40 mL/min Estimated GFR (MDRD) > 60 (>60) mL/min BUN/Creatinine Ratio 14.3 (14-18) Glucose 91 (74-106) mg/dL Calcium 8.7 (8.5-10.1) mg/dL Total Bilirubin 0.2 (0.2-1.0) mg/dL AST 17 (15-37) U/L ALT 20 (14-59) U/L Alkaline Phosphatase 77 (46-116) U/L C-Reactive Protein <0.2 (<1.0) mg/dL Total Protein 6.9 (6.4-8.2) g/dl Albumin 3.5 (3.4-5.0) g/dl Globulin 3.4 gm/dL Albumin/Globulin Ratio 1.0 (1-2) Urine Color Yellow (Yellow) Urine Appearance Clear (Clear) Urine pH 7.0 (5.0-8.0) Ur Specific [place] 1.020 (1.005-1.030) Urine Protein Negative (Negative) Urine Glucose (UA) Negative (Negative) Urine Ketones Negative (Negative) Urine Occult Blood Negative (Negative) Urine Nitrite Negative (Negative) Urine Bilirubin Negative (Negative) Urine Urobilinogen 0.2 (0.2-1.0) Ur Leukocyte Esterase Negative (Negative) Urine RBC 0-5 (0-5) /hpf Urine WBC 0-5 (0-5) /hpf Ur Squamous Epith Cells 0-5 (0-5) /hpf Urine Bacteria Rare (FEW) /hpf Urine Mucus Not seen (FEW) /hpf Meds: Medications Generic Name Dose Route Start Last Admin Trade Name Geronimo PRN Reason Stop Dose Admin Dextrose/Sodium Chloride 1,000 mls @ 150 mls/hr 04/28/20 07:15 04/28/20 07:25 Dextrose 5%-Normal Saline IV 150 mls/hr ASDIRECTED KIERRA Administration Discontinued Medications Generic Name Dose Route Start Last Admin Trade Name Geronimo PRN Reason Stop Dose Admin Hydromorphone HCl 0.5 mg 04/28/20 07:05 04/28/20 07:26 Dilaudid IVPUSH 04/28/20 07:06 0.5 mg ONETIME ONE Administration Magnesium Citrate 296 ml 04/28/20 08:16 04/28/20 08:21 Citrate Of Magnesia PO 04/28/20 08:17 296 ml ONETIME ONE Administration Metoclopramide HCl 7.5 mg 04/28/20 07:06 04/28/20 07:25 Reglan IVPUSH 04/28/20 07:07 7.5 mg ONETIME ONE Administration - Radiology Interpretation Free Text/Narrative:: Any 4-year-old female presents to the ED with acute onset of left upper quadrant left flank pain starting about 5:00 this morning. Of note she is being treated for urinary tract infection for the last 2 days with Macrobid 100 mg twice daily. She reports that her dysuria urgency is improved since starting antibiotics and Azo. She states she is having intermittent fever and chills. History of renal colic. This pain came on rather suddenly and did not cause nausea and vomiting. She has pain in bilateral flanks in the costovertebral angles.'s are clear. Benign benign abdominal examination. Plan IV D5 normal saline at open. Given Dilaudid 0.5 mg IV for pain relief with Reglan 7.5 mg IV for nausea relief. She will have routine lab work without blood cultures as she is afebrile at this time. CT of the abdomen will be done per renal protocol. - Re-Assessments/Exams Free Text/Narrative Re-Assessment/Exam: 04/28/20 08:10 Labs reveal a normal white count of 6.65. Auto differential shows 61% neutrophils. Hemoglobin is 13.4 with a hematocrit of 41.0. Platelet count 300,000. Chemistry shows a sodium of 140. Potassium is 3.9. Chloride 106 with a bicarb of 27. Anion gap is 10.9. BUN is 10 with a creatinine of 0.7. GFR is greater than 60. Glucose 91 with a calcium of 8.7. Liver function normal C-reactive protein less than 0.2 total protein 6.9 with an albumin fraction of 3.5. 04/28/20 08:10 CT of the abdomen done per renal protocol reveals previous cholecystectomy. Liver is homogeneous with no intraductal dilatation. Gallbladder is absent. Pancreas appears normal. Stomach is full of food. There is a mild hiatal hernia. Both kidneys are within normal limits as are the adrenal glands. There was no obstruction of the ureters. No perinephric stranding. There is a large amount of stool throughout the entire colon particularly the transverse colon and splenic flexure where the patient is having most of her pain. The entire descending colon is also full of stool with some contrast that she must have had orally recently. Lab work shows no abnormalities. Pain is being caused by constipation. Plan she will be given magnesium citrate 10 ounces by mouth mixed with 6 ounces of Gatorade or juice of choice to provide bowel cleanse. 04/28/20 08:59 urinalysis is completely normal. Patient will be discharged to home. 04/28/20 09:02 patient is experiencing increased abdominal cramping pain. We will give Bentyl 20 mg by mouth. She did drink the entire 10 ounces of magnesium citrate. Note will be given for work today as she may miss work as she is supposed to attend work at 1400 hrs. today. 04/28/20 09:03 Departure - Departure Time of Disposition: 09:03 Disposition: Home, Self-Care 01 Condition: Fair Clinical Impression: Constipation by delayed colonic transit Abdominal pain Qualifiers: Abdominal location: left upper quadrant Qualified Code(s): R10.12 - Left upper quadrant pain - Discharge Information *PRESCRIPTION DRUG MONITORING PROGRAM REVIEWED*: Not Applicable *COPY OF PRESCRIPTION DRUG MONITORING REPORT IN PATIENT RUTHIE: Not Applicable Instructions: Constipation, Adult Referrals: PCP,None [Primary Care Provider] - Forms: ED Department Discharge, ED Return to Work/School Form Additional Instructions: Evaluation in the emergency room this morning in regards to left upper quadrant abdominal pain rating into the left back. Recently started on Macrobid for urinary tract infection 2 days ago. No fever while in the ED. Labs proved to be completely normal. No signs of bacterial infection. CT of the abdomen reveals no kidney stones in either kidney and nothing that is obstructing the left ureter to cause left upper quadrant pain. Pain is due to marked constipation throughout the entire colon. Particularly the left upper quadrant where you are having your pain. Treatment is magnesium citrate 10 ounces by mouth mixed with 6 ounces of juice of choice to provide bowel cleanse. Usually starts to work 1 to 2 hours after drinking the medication. Also usually move 3- 5 times often ending in mild diarrhea. Because the patient is a long-term problem suggest MiraLAX, 17 g or 1 scoop daily to prevent constipation from occurring. He knew the Macrobid as prescribed. Current urinalysis shows it is working well with no signs of infection in the urine. Sepsis Event Note (ED) - Evaluation Sepsis Screening Result: No Definite Risk - Focused Exam Vital Signs: Vital Signs Temp Pulse Resp BP Pulse Ox 04/28/20 06:36 36.9 C 93 17 127/91 H 100 - My Orders Last 24 Hours: My Active Orders 04/28/20 07:15 Dextrose 5%-0.9% NaCl [Dextrose 5%-Normal Saline] 1,000 ml IV ASDIRECTED 04/28/20 09:02 Dicyclomine [Bentyl] 20 mg PO ONETIME ONE - Assessment/Plan Last 24 Hours: My Active Orders 04/28/20 07:15 Dextrose 5%-0.9% NaCl [Dextrose 5%-Normal Saline] 1,000 ml IV ASDIRECTED 04/28/20 09:02 Dicyclomine [Bentyl] 20 mg PO ONETIME ONE
[2020-04-28] MEDS ORDERED: Metoclopramide 10 MG/2 ML SDV IVPUSH ONE (07:06)
[2020-04-28] MEDS ORDERED: Dextrose 5%-0.9% NaCl 1,000 ML IV SCH (07:15)
[2020-04-28] MEDS ORDERED: Magnesium Citrate Solution 296 ML Bottle PO ONE (08:16)
--- NOTE | 2020-04-28 08:16 | CT ---
CT abdomen and pelvis Technique: Multiple axial sections were obtained from above the dome of the diaphragm inferiorly to the pubic symphysis. Intravenous and oral contrast not utilized. Study has been performed as a ureteral stone protocol. Findings: Kidneys show no abnormal calcifications. No ureteral dilatation is seen. No ureteral calculi are seen. No bladder calculi are seen. Visualized lung bases showed nothing acute. Liver shows low density next to the ligamentum teres fissure most likely due to focal fat. No additional abnormality is seen within the liver. Spleen appears normal. Adrenal glands show no nodule. Pancreas shows no discrete abnormality. Aorta shows no aneurysm. No retroperitoneal adenopathy or mesenteric abnormalities are seen. Surgical clips are noted from prior cholecystectomy. No pelvic mass or adenopathy is appreciated. Appendix is seen which is normal in size. No free fluid or inflammatory change is seen within the abdomen or within the pelvis. Mild increased stool is noted within the colon. Bone window settings were reviewed which shows no acute osseous finding. Impression: 1. No renal calculi, ureteral dilatation or ureteral stone is seen. 2. Mild increased stool within the colon. 3. No additional abnormality is appreciated on noncontrast CT study of the abdomen and pelvis. Diagnostic code #2 Study was dictated in MDT
[2020-04-28] MEDS ORDERED: Dicyclomine 10 MG Cap PO ONE (09:02)
== END 2020-04-28 09:25 | disposition home or self-care (01) ==
LOC: JD.ED 06:27
DX: K59.01 Slow transit constipation (principal); J45.909 Unspecified asthma, uncomplicated; K21.9 Gastro-esophageal reflux disease without esophagitis; F41.9 Anxiety disorder, unspecified; F32.9 Major depressive disorder, single episode, unspecified; F17.210 Nicotine dependence, cigarettes, uncomplicated; Z88.8 Allergy status to other drugs, medicaments and biological substances; Z88.5 Allergy status to narcotic agent; Z88.6 Allergy status to analgesic agent; Z88.0 Allergy status to penicillin; Z91.013 Allergy to seafood; Z88.2 Allergy status to sulfonamides; Z91.041 Radiographic dye allergy status; Z79.899 Other long term (current) drug therapy
CPT/HCPCS: 36415; 74176; 80053; 81001; 85025; 86140; 96361; 96374; 96375; 99284; A9270; J1170; J2765; J7042; 99283

== ENCOUNTER 2020-07-13 12:29 | Emergency (ER) | payer MEDICAID ==
[2020-07-13] MEDS ORDERED: Acetaminophen 325 MG Tab PO ONE (13:02)
[2020-07-13] MEDS ORDERED: Acyclovir 200 MG Cap PO ONE (13:03)
--- NOTE | 2020-07-13 13:14 | EDM.PDOC ---
ED HPI GENERAL MEDICAL PROBLEM - General Chief Complaint: ENT Problem Stated Complaint: SORES IN MOUTH Time Seen by Provider: 07/13/20 12:39 Source of Information: Reports: Patient History Limitations: Reports: No Limitations - History of Present Illness INITIAL COMMENTS - FREE TEXT/NARRATIVE: Patient is a 24-year-old female presenting to the emergency department with complaints of sores in her mouth. States she awoke this morning with a number of sores on her inner lip, under her tongue, and oropharynx. She denies a history of cold sores or similar lesions, however states she has been sharing Chapstick with an individual. She has been using Orajel at home for relief. Denies any fever or chills. Oral/Mouth Pain Score (Numeric/FACES): 7 - Related Data Allergies Allergy/AdvReac Type Severity Reaction Status Date / Time butorphanol [From Stadol] Allergy Mild Cannot Verified 07/13/20 12:39 Remember codeine Allergy Mild Cannot Verified 07/13/20 12:39 [From Tylenol-Codeine #3] Remember ketorolac [From Toradol] Allergy Mild Cannot Verified 07/13/20 12:39 Remember Penicillins Allergy Mild Cannot Verified 07/13/20 12:39 Remember shellfish derived Allergy Mild Cannot Verified 07/13/20 12:39 Remember sulfamethoxazole Allergy Mild Other Verified 07/13/20 12:39 [From Bactrim] trazodone Allergy Mild Cannot Verified 07/13/20 12:39 Remember trimethoprim [From Bactrim] Allergy Mild Other Verified 07/13/20 12:39 contrast dye. Allergy Mild Cannot Uncoded 07/13/20 12:39 Remember Home Meds: Home Meds Divalproex Sodium [Depakote ER] 250 mg PO TID 03/02/20 [History] Famotidine 40 mg PO DAILY 03/02/20 [History] Acetaminophen/HYDROcodone [[place] 325-5 MG] 1 tab PO Q6H PRN #12 tablet 03/28/20 [Rx] Orphenadrine [Norflex] 100 mg PO BID PRN #20 tab 03/28/20 [Rx] Acyclovir 400 mg PO Q8H #29 tablet 07/13/20 [Rx] Past Medical History HEENT History: Reports: Impaired Vision Other HEENT History: Wears glasses Cardiovascular History: Reports: Other (See Below) Other Cardiovascular History: tachycardia Respiratory History: Reports: Asthma Gastrointestinal History: Reports: GERD Genitourinary History: Reports: Other (See Below) Other Genitourinary History: stage 2 kidney disease [employer] History: Reports: , 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: HPV - Past Surgical History HEENT Surgical History: Reports: Adenoidectomy, Myringotomy w Tube(s), Tonsillectomy GI Surgical History: Reports: Cholecystectomy Social & Family History - Family History Family Medical History: Noncontributory - Tobacco Use Smoking Status *Q: Current Every Day Smoker Years of Tobacco use: 11 Packs/Tins Daily: 1.5 - Caffeine Use Caffeine Use: Reports: Coffee - Recreational Drug Use Recreational Drug Use: No - Living Situation & Occupation Living situation: Reports: Occupation: Employed ED ROS ENT - Review of Systems Review Of Systems: Comprehensive ROS is negative, except as noted in HPI. ED EXAM, ENT - Physical Exam Exam: See Below Exam Limited By: No Limitations General Appearance: Alert, WD/WN, No Apparent Distress Mouth/Throat: Oral Ulcers (Right lower lip, bilateral sides under tongue) Respiratory/Chest: No Respiratory Distress, Lungs Clear, Normal Breath Sounds, No Accessory Muscle Use, Chest Non-Tender Cardiovascular: Normal Peripheral Pulses, Regular Rate, Rhythm, No Edema, No Gallop, No JVD, No Murmur, No Rub Neurological: Alert, Oriented, CN II-XII Intact, Normal Cognition, Normal Gait, Normal Reflexes, No Motor/Sensory Deficits Psychiatric: Normal Affect, Normal Mood Skin: Warm, Dry, Intact, Normal Color, No Rash Course - Vital Signs Last Recorded V/S: Last Vital Signs Temp 97 F 07/13/20 12:37 Pulse 107 H 07/13/20 12:37 Resp 16 07/13/20 12:37 BP 122/91 H 07/13/20 12:37 Pulse Ox 98 07/13/20 12:37 - Orders/Labs/Meds Meds: Medications Discontinued Medications Generic Name Dose Route Start Last Admin Trade Name Geronimo PRN Reason Stop Dose Admin Acetaminophen 650 mg 07/13/20 13:02 Tylenol PO 07/13/20 13:03 NOW ONE Acyclovir 400 mg 07/13/20 13:03 Zovirax PO 07/13/20 13:04 ONETIME ONE - Re-Assessments/Exams Free Text/Narrative Re-Assessment/Exam: 07/13/20 13:10 Patient is a 24-year-old female presenting to the emergency department with complaints of painful ulcers in her mouth. On exam, she does have vesicular lesions under her tongue as well as one on the right lower lip. Patient states she is allergic to lidocaine, therefore Magic mouthwash would be contraindicated. We will start her on acyclovir and give her a dose of Tylenol. Recommend that she continue to use Orajel as needed. Discharge instructions as documented. Departure - Departure Time of Disposition: 13:11 Disposition: Home, Self-Care 01 Condition: Good Clinical Impression: Oral herpes simplex infection - Discharge Information *PRESCRIPTION DRUG MONITORING PROGRAM REVIEWED*: No *COPY OF PRESCRIPTION DRUG MONITORING REPORT IN PATIENT RUTHIE: No Prescriptions: Acyclovir 400 mg PO Q8H #29 tablet Referrals: PCP,None [Primary Care Provider] - Additional Instructions: You were seen in the emergency department today for painful sores in your mouth. On exam, you do have a number of ulcers consistent with a diagnosis of herpes simplex type I. He was started on acyclovir which is an antiviral. Take this medication as prescribed. You may continue to use the Orajel and [id number] Tylenol as needed. Recommend that you avoid any acidic or spicy foods and this will likely aggravate your symptoms. Cold foods are often soothing. If you not see improvement in the lesions after about 3 days, recommend that you follow-up in the clinic. Return to ER as needed. Sepsis Event Note (ED) - Evaluation Sepsis Screening Result: No Definite Risk - Focused Exam Vital Signs: Vital Signs Temp Pulse Resp BP Pulse Ox 07/13/20 12:37 97 F 107 H 16 122/91 H 98
== END 2020-07-13 13:30 | disposition home or self-care (01) ==
LOC: JD.ED 12:29
DX: B00.1 Herpesviral vesicular dermatitis (principal); J45.909 Unspecified asthma, uncomplicated; K21.9 Gastro-esophageal reflux disease without esophagitis; F17.210 Nicotine dependence, cigarettes, uncomplicated; Z88.8 Allergy status to other drugs, medicaments and biological substances; Z88.5 Allergy status to narcotic agent; Z88.0 Allergy status to penicillin; Z91.013 Allergy to seafood; Z88.2 Allergy status to sulfonamides; Z88.1 Allergy status to other antibiotic agents; Z91.041 Radiographic dye allergy status; Z79.899 Other long term (current) drug therapy
CPT/HCPCS: 99282; A9270; 99283

== ENCOUNTER 2020-08-09 19:27 | Emergency (ER) | payer MEDICAID ==
[2020-08-09] MEDS ORDERED: Ondansetron 4 MG Tab.DIS PO ONE (21:53)
[2020-08-09] MEDS ORDERED: Acetaminophen/HYDROcodone 325-5 MG Tab PO ONE (22:57)
--- NOTE | 2020-08-09 23:02 | EDM.PDOC ---
ED HPI GENERAL MEDICAL PROBLEM - General Chief Complaint: Abdominal Pain Stated Complaint: EXTREMLY CONSTIPATED Time Seen by Provider: 08/09/20 21:47 Source of Information: Reports: Patient History Limitations: Reports: No Limitations - History of Present Illness INITIAL COMMENTS - FREE TEXT/NARRATIVE: This is a 24-year-old female. She comes tonight because she has not had a bowel movement for the last week. She feels pain in her left upper quadrant and flank area this seems to go into her leg and go up into her shoulder. She has been taking [id number] stool softeners and even took some mag citrate but it did not provide a bowel movement. States that she has been urinating semi- frequently and sometimes large amounts sometimes small amounts. There is a question whether or not she might be and her test at home have been equivocal. She denies any fever or chills she denies any cough or congestion. She is here for the abdominal pain and the constipation. Left Lower Abdomen Pain Score (Numeric/FACES): 6 - Related Data Allergies Allergy/AdvReac Type Severity Reaction Status Date / Time butorphanol [From Stadol] Allergy Mild Cannot Verified 08/09/20 19:45 Remember codeine Allergy Mild Cannot Verified 08/09/20 19:45 [From Tylenol-Codeine #3] Remember ketorolac [From Toradol] Allergy Mild Cannot Verified 08/09/20 19:45 Remember Penicillins Allergy Mild Cannot Verified 08/09/20 19:45 Remember shellfish derived Allergy Mild Cannot Verified 08/09/20 19:45 Remember sulfamethoxazole Allergy Mild Other Verified 08/09/20 19:45 [From Bactrim] trazodone Allergy Mild Cannot Verified 08/09/20 19:45 Remember trimethoprim [From Bactrim] Allergy Mild Other Verified 08/09/20 19:45 contrast dye. Allergy Mild Cannot Uncoded 07/13/20 12:39 Remember Home Meds: Home Meds Divalproex Sodium [Depakote ER] 250 mg PO TID 03/02/20 [History] Famotidine 40 mg PO DAILY 03/02/20 [History] Acetaminophen/HYDROcodone [Bell 325-5 MG] 1 tab PO Q6H PRN #12 tablet 03/28/20 [Rx] Orphenadrine [Norflex] 100 mg PO BID PRN #20 tab 03/28/20 [Rx] Acyclovir 400 mg PO Q8H #29 tablet 07/13/20 [Rx] Dicyclomine [Bentyl] 20 mg PO Q8H PRN #12 tablet 08/10/20 [Rx] Past Medical History HEENT History: Reports: Impaired Vision Other HEENT History: Wears glasses Cardiovascular History: Reports: Other (See Below) Other Cardiovascular History: tachycardia Respiratory History: Reports: Asthma Gastrointestinal History: Reports: GERD Genitourinary History: Reports: Other (See Below) Other Genitourinary History: stage 2 kidney disease [employer]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 Dermatologic History: Reports: Psoriasis - Infectious Disease History Infectious Disease History: Reports: Herpes Other Infectious Disease History: HPV - Past Surgical History HEENT Surgical History: Reports: Adenoidectomy, Myringotomy w Tube(s), Tonsillectomy GI Surgical History: Reports: Cholecystectomy Social & Family History - Family History Family Medical History: Noncontributory - Tobacco Use Smoking Status *Q: Current Every Day Smoker Years of Tobacco use: 11 Packs/Tins Daily: 2 - Caffeine Use Caffeine Use: Reports: Coffee, Energy Drinks, Soda, Tea - Recreational Drug Use Recreational Drug Use: No - Living Situation & Occupation Living situation: Reports: Occupation: Employed ED ROS GENERAL - Review of Systems Review Of Systems: See Below Constitutional: Denies: Fever, Chills HEENT: Reports: No Symptoms Respiratory: Denies: Shortness of Breath, Cough Cardiovascular: Denies: Chest Pain Endocrine: Reports: No Symptoms GI/Abdominal: Reports: Abdominal Pain, Constipation. Denies: Nausea, Vomiting : Reports: Dysuria, Flank Pain Musculoskeletal: Reports: No Symptoms Skin: Reports: No Symptoms Neurological: Reports: No Symptoms Psychiatric: Reports: No Symptoms Hematologic/Lymphatic: Reports: No Symptoms ED EXAM, GI/ABD - Physical Exam Exam: See Below Exam Limited By: No Limitations General Appearance: Alert, WD/WN, No Apparent Distress Eyes: Bilateral: Normal Appearance Ears: Normal External Exam Nose: Normal Inspection Throat/Mouth: Normal Voice, No Airway Compromise Head: Normocephalic Neck: Supple Respiratory/Chest: No Respiratory Distress, Lungs Clear, Normal Breath Sounds Cardiovascular: Regular Rate, Rhythm, No Murmur GI/Abdominal Exam: Soft, Other (Planes of tenderness in the left flank and left upper quadrant, however she is very soft there is no masses no rebound noted, the right abdomen has no tenderness whatsoever.) Back Exam: Full Range of Motion Extremities: Normal Inspection, Normal Range of Motion Neurological: Alert, Oriented Psychiatric: Normal Affect, Normal Mood Skin Exam: Warm, Dry Course - Vital Signs Last Recorded V/S: Last Vital Signs Temp 97.7 F 08/09/20 19:42 Pulse 103 H 08/09/20 19:42 Resp 17 08/09/20 19:42 BP 133/79 08/09/20 19:42 Pulse Ox 100 08/09/20 19:42 - Orders/Labs/Meds Orders: Active Orders 24 hr Category Date Time Status Enema [RC] ASDIRECTED Care 08/10/20 01:35 Active KUB [Abdomen 1V Flat] [CR] Stat Exams 08/10/20 00:06 Taken Labs: Laboratory Tests 08/09/20 08/09/20 08/09/20 Range/Units 23:10 23:10 23:10 WBC 7.80 (3.98-10.04) K/mm3 RBC 4.88 (3.98-5.22) M/mm3 Hgb 14.2 (11.2-15.7) gm/dl Hct 42.4 (34.1-44.9) % MCV 86.9 (79.4-94.8) fl MCH 29.1 (25.6-32.2) pg MCHC 33.5 (32.2-35.5) g/dl RDW Std Deviation 40.5 (36.4-46.3) fL Plt Count 315 (182-369) K/mm3 MPV 10.1 (9.4-12.3) fl Neut % (Auto) 69.4 (34.0-71.1) % Lymph % (Auto) 24.0 (19.3-51.7) % [place] % (Auto) 5.3 (4.7-12.5) % Eos % (Auto) 0.8 (0.7-5.8) Baso % (Auto) 0.4 (0.1-1.2) % Neut # (Auto) 5.42 (1.56-6.13) K/mm3 Lymph # (Auto) 1.87 (1.18-3.74) K/mm3 [place] # (Auto) 0.41 H (0.24-0.36) K/mm3 Eos # (Auto) 0.06 (0.04-0.36) K/mm3 Baso # (Auto) 0.03 (0.01-0.08) K/mm3 HCG, Qual Negative (NEGATIVE) Urine Color Light yellow (Yellow) Urine Appearance Cloudy H (Clear) Urine pH 8.5 H (5.0-8.0) Ur Specific [place] 1.020 (1.005-1.030) Urine Protein Negative (Negative) Urine Glucose (UA) Negative (Negative) Urine Ketones Negative (Negative) Urine Occult Blood Negative (Negative) Urine Nitrite Negative (Negative) Urine Bilirubin Negative (Negative) Urine Urobilinogen 0.2 (0.2-1.0) Ur Leukocyte Esterase 1+ H (Negative) Urine RBC 0-5 (0-5) /hpf Urine WBC 0-5 (0-5) /hpf Ur Squamous Epith Cells 10-20 H (0-5) /hpf Amorphous Sediment Many H (NOT SEEN) /hpf Urine Bacteria Few (FEW) /hpf Urine Mucus Few (FEW) /hpf Meds: Medications Discontinued Medications Generic Name Dose Route Start Last Admin Trade Name Freq PRN Reason Stop Dose Admin Hydrocodone Bitart/Acetaminophen 1 tab 08/09/20 22:57 08/09/20 23:03 Bell 325-5 Mg PO 08/09/20 22:58 1 tab ONETIME ONE Administration Ondansetron HCl 4 mg 08/09/20 21:53 08/09/20 21:59 Zofran Odt PO 08/09/20 21:54 4 mg ONETIME ONE Administration - Radiology Interpretation Free Text/Narrative:: UB does suggest considerable stool in the colon but no other acute findings - Re-Assessments/Exams Free Text/Narrative Re-Assessment/Exam: 08/10/20 02:07 Patient did the enema that had good results and she says her pain is resolved now and she feels good and wants to go home. Courage her to continue with the stool softeners and lots of fluids. Departure - Departure Time of Disposition: 02:08 Disposition: Home, Self-Care 01 Condition: Good Clinical Impression: Abdominal cramps Constipation Qualifiers: Constipation type: unspecified constipation type Qualified Code(s): K59.00 - Constipation, unspecified - Discharge Information *PRESCRIPTION DRUG MONITORING PROGRAM REVIEWED*: Not Applicable *COPY OF PRESCRIPTION DRUG MONITORING REPORT IN PATIENT RUTHIE: Not Applicable Prescriptions: Dicyclomine [Bentyl] 20 mg PO Q8H PRN #12 tablet PRN Reason: Abdominal Pain Instructions: Chronic Constipation Referrals: PCP,None [Primary Care Provider] - Forms: ED Department Discharge Additional Instructions: Continue to drink lots of fluids, use the stool softeners, you may do enemas at home to help relieve some of the constipation, use the Bentyl as needed for the abdominal cramps, follow-up with your doctor later this week for recheck or return to the ER if needed Sepsis Event Note (ED) - Evaluation Sepsis Screening Result: No Definite Risk - Focused Exam Vital Signs: Vital Signs Temp Pulse Resp BP Pulse Ox 08/09/20 19:42 97.7 F 103 H 17 133/79 100 - My Orders Last 24 Hours: My Active Orders 08/10/20 00:06 KUB [Abdomen 1V Flat] [CR] Stat 08/10/20 01:35 Enema [RC] ASDIRECTED - Assessment/Plan Last 24 Hours: My Active Orders 08/10/20 00:06 KUB [Abdomen 1V Flat] [CR] Stat 08/10/20 01:35 Enema [RC] ASDIRECTED
--- NOTE | 2020-09-10 08:29 | CR ---
PROCEDURE INFORMATION: Exam: XR Abdomen, 1 View Exam date and time: 08/10/2020 12:38 AM Age: 24 years old Clinical indication: Abdominal pain; Flank; Left upper quadrant (luq) TECHNIQUE: Imaging protocol: XR of the abdomen. Views: Frontal supine view of the abdomen. 1 View. COMPARISON: CT Abdomen Pelvis wo Cont 04/28/2020 7:54 AM FINDINGS: Gastrointestinal tract: Normal. No bowel dilation. There is a moderate amount of colonic content identified. Intraperitoneal space: Normal. No free air. Organs: Patient is status post cholecystectomy. Bones/joints: Unremarkable for age. Soft tissues: No suspect mass or calcification. IMPRESSION: No acute abnormality findings. Thank you for allowing us to participate in the care of your patient. Dictated and Authenticated by: Calvin Tom MD 09/09/2020 7:09 PM Central Time ([place] & [place]) [email or web address]
== END 2020-08-10 02:30 | disposition home or self-care (01) ==
LOC: JD.ED 19:27
DX: K59.00 Constipation, unspecified (principal); J45.909 Unspecified asthma, uncomplicated; K21.9 Gastro-esophageal reflux disease without esophagitis; F17.210 Nicotine dependence, cigarettes, uncomplicated; Z88.8 Allergy status to other drugs, medicaments and biological substances; Z88.5 Allergy status to narcotic agent; Z88.6 Allergy status to analgesic agent; Z88.0 Allergy status to penicillin; Z91.013 Allergy to seafood; Z88.2 Allergy status to sulfonamides; Z91.041 Radiographic dye allergy status; Z88.1 Allergy status to other antibiotic agents; Z79.899 Other long term (current) drug therapy
CPT/HCPCS: 36415; 74018; 81001; 84703; 85025; 99284; A9270; 99283

== ENCOUNTER 2020-08-13 18:04 | Emergency (ER) | payer MEDICAID ==
[2020-08-13] MEDS ORDERED: Dicyclomine 10 MG Cap PO ONE (19:12)
--- NOTE | 2020-08-13 19:12 | EDM.PDOC ---
ED HPI GENERAL MEDICAL PROBLEM - General Chief Complaint: Gastrointestinal Problem Stated Complaint: STOMACH PAIN Time Seen by Provider: 08/13/20 19:00 Source of Information: Reports: Patient History Limitations: Reports: No Limitations - History of Present Illness INITIAL COMMENTS - FREE TEXT/NARRATIVE: Patient is a 24-year-old female presenting to the emergency department with complaints of generalized abdominal discomfort and constipation. She was seen in this emergency department 4 days ago for the same complaint. While here, she received an enema which she states did improve her pain, however she has not had a bowel movement since that time. She has been using docusate sodium twice daily. States 4 days ago she also drink about two thirds of a bottle of magnesium citrate and had no further bowel movements. She does have a history of constipation during and as a child. She is still passing gas. Denies any vomiting but states she is nauseous. Right Abdomen Pain Score (Numeric/FACES): 7 - Related Data Allergies Allergy/AdvReac Type Severity Reaction Status Date / Time butorphanol [From Stadol] Allergy Severe Cannot Verified 08/13/20 18:29 Remember codeine Allergy Severe Cannot Verified 08/13/20 18:29 [From Tylenol-Codeine #3] Remember ketorolac [From Toradol] Allergy Severe Cannot Verified 08/13/20 18:29 Remember Penicillins Allergy Severe Cannot Verified 08/13/20 18:29 Remember shellfish derived Allergy Severe Cannot Verified 08/13/20 18:29 Remember sulfamethoxazole Allergy Severe Other Verified 08/13/20 18:29 [From Bactrim] trazodone Allergy Severe Cannot Verified 08/13/20 18:29 Remember trimethoprim [From Bactrim] Allergy Severe Other Verified 08/13/20 18:29 contrast dye. 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: HPV - Past Surgical History HEENT Surgical History: Reports: Adenoidectomy, Myringotomy w Tube(s), Tonsillectomy GI Surgical History: Reports: Cholecystectomy Social & Family History - Family History Family Medical History: Noncontributory - Tobacco Use Smoking Status *Q: Current Every Day Smoker Years of Tobacco use: 11 Packs/Tins Daily: 2 - Caffeine Use Caffeine Use: Reports: Energy Drinks, Soda, Tea - Recreational Drug Use Recreational Drug Use: No - Living Situation & Occupation Living situation: Reports: Occupation: Employed ED ROS GENERAL - Review of Systems Review Of Systems: See Below Constitutional: Reports: No Symptoms HEENT: Reports: No Symptoms Respiratory: Reports: No Symptoms Cardiovascular: Reports: No Symptoms Endocrine: Reports: No Symptoms GI/Abdominal: Reports: Abdominal Pain, Constipation, Distension, Flatus, Nausea. Denies: Diarrhea, Decreased Appetite, Vomiting : Reports: No Symptoms Musculoskeletal: Reports: No Symptoms Skin: Reports: No Symptoms Neurological: Reports: No Symptoms Psychiatric: Reports: No Symptoms Hematologic/Lymphatic: Reports: No Symptoms Immunologic: Reports: No Symptoms ED EXAM, GI/ABD - Physical Exam Exam: See Below General Appearance: Alert, WD/WN, No Apparent Distress Respiratory/Chest: No Respiratory Distress, Lungs Clear, Normal Breath Sounds, No Accessory Muscle Use, Chest Non-Tender Cardiovascular: Normal Peripheral Pulses GI/Abdominal Exam: Normal Bowel Sounds, Soft, No Organomegaly, No Abnormal Bruit, No Mass, Pelvis Stable, Distended (mildly), Tender (generalized throughout) Neurological: Alert, Oriented, CN II-XII Intact, Normal Cognition, Normal Gait, Normal Reflexes, No Motor/Sensory Deficits Psychiatric: Normal Affect, Normal Mood Skin Exam: Warm, Dry, Intact, Normal Color, No Rash Course - Vital Signs Last Recorded V/S: Last Vital Signs Temp 98.6 F 08/13/20 18:25 Pulse 98 08/13/20 18:25 Resp 16 08/13/20 18:25 BP 124/93 H 08/13/20 18:25 Pulse Ox 100 08/13/20 18:25 - Orders/Labs/Meds Orders: Active Orders 24 hr Category Date Time Status Abdomen 2V AP Flat Upright [CR] Stat Exams 08/13/20 19:03 Taken Meds: Medications Discontinued Medications Generic Name Dose Route Start Last Admin Trade Name Geronimo PRN Reason Stop Dose Admin Dicyclomine HCl 20 mg 08/13/20 19:12 08/13/20 19:24 Bentyl PO 08/13/20 19:13 20 mg ONETIME ONE Administration Ondansetron HCl 4 mg 08/13/20 19:13 08/13/20 19:23 Zofran Odt PO 08/13/20 19:14 4 mg ONETIME ONE Administration - Re-Assessments/Exams Free Text/Narrative Re-Assessment/Exam: 08/13/20 19:44 X-ray of the abdomen flat and upright shows increased stool throughout the descending colon and splenic flexure, as well as increased air throughout the small bowel. There is no air-fluid levels. Patient has been passing gas well. Enema was offered, however patient opted to try the bottle of magnesium citrate prior to this. We will send her home with a bottle of mag citrate. Recommend that she start a bowel regimen of MiraLAX twice daily to try to maintain regularity. Return to the ER as needed. Discharge instructions as documented. Departure - Departure Time of Disposition: 19:45 Disposition: Home, Self-Care 01 Condition: Good Clinical Impression: Constipation Qualifiers: Constipation type: unspecified constipation type Qualified Code(s): K59.00 - Constipation, unspecified - Discharge Information *PRESCRIPTION DRUG MONITORING PROGRAM REVIEWED*: No *COPY OF PRESCRIPTION DRUG MONITORING REPORT IN PATIENT RUTHIE: No Instructions: Constipation, Adult Referrals: PCP,None [Primary Care Provider] - Forms: ED Department Discharge Additional Instructions: You were seen in the emergency department today for continued constipation with abdominal distention and pain. X-rays were completed and do show a collection of stool throughout the left side of your colon as well as air collection throughout your small bowel. You have been sent home with a bottle of magnesium citrate. Recommend that you drink this entire bottle upon getting home. This should produce a number of bowel movements, some of which may be loose. If this fails to relieve your discomfort or you develop any new or worsening symptoms of concern, please not hesitate to return to the emergency department. Sepsis Event Note (ED) - Evaluation Sepsis Screening Result: No Definite Risk - Focused Exam Vital Signs: Vital Signs Temp Pulse Resp BP Pulse Ox 08/13/20 18:25 98.6 F 98 16 124/93 H 100 - My Orders Last 24 Hours: My Active Orders 08/13/20 19:03 Abdomen 2V AP Flat Upright [CR] Stat - Assessment/Plan Last 24 Hours: My Active Orders 08/13/20 19:03 Abdomen 2V AP Flat Upright [CR] Stat
[2020-08-13] MEDS ORDERED: Ondansetron 4 MG Tab.DIS PO ONE (19:13)
[2020-08-13] MEDS ORDERED: Magnesium Citrate Solution 296 ML Bottle PO ONE (19:47)
== END 2020-08-13 19:52 | disposition home or self-care (01) ==
LOC: JD.ED 18:04
DX: K59.00 Constipation, unspecified (principal); R11.0 Nausea; J45.909 Unspecified asthma, uncomplicated; K21.9 Gastro-esophageal reflux disease without esophagitis; N18.2 Chronic kidney disease, stage 2 (mild); F17.210 Nicotine dependence, cigarettes, uncomplicated; Z88.5 Allergy status to narcotic agent; Z88.0 Allergy status to penicillin; Z91.013 Allergy to seafood; Z88.2 Allergy status to sulfonamides; Z88.8 Allergy status to other drugs, medicaments and biological substances; Z91.041 Radiographic dye allergy status; Z79.899 Other long term (current) drug therapy; Z90.49 Acquired absence of other specified parts of digestive tract
CPT/HCPCS: 74019; 99283; A9270